=== PATIENT | male | born 1965 | race Caucasian/White ===

== ENCOUNTER 2017-11-28 19:25 | Emergency (ER) | payer OTHER ==
[~2017-11-28] VITALS: Ht 170.2 cm; Wt 80.7 kg
[2017-11-28 19:30] VITALS: BP 138/95
--- NOTE | 2017-11-28 19:34 | NUR ---
Patient ambulated to bed 3. RN evaluating patient at bedside.
--- NOTE | 2017-11-28 19:44 | NUR ---
Dr. Neely evaluating patient at bedside.
--- NOTE | 2017-11-28 19:45 | NUR ---
52/M CAME IN ED, C/O 01/05 ACHING, BURNING R HAND PAIN, NONRADIATING, X3 DAYS. PT STATED HE SLAMMED HIS HAND ON A WOODEN DOOR ON MONDAY. R HAND SWELLING NOTED, SKIN INTACT, LIMITED ROM, +CIRCULATION, +SENSATION. PT REPORTS PUTTING ICY HOT WITH LITTLE RELIEF. AAOX4, PERRL, WITH EVEN AND STEADY GAIT; LUNGS CLEAR BL, BREATHING UNLABORED; HR EVEN AND REGULAR, BL PERIPHERAL PULSES PRESENT; BS ACTIVE X4, NO TENDERNESS TO PALPATION; PT DENIES ANY FEVER, CP, SOB, OR COUGH AT THIS TIME; PATIENT POSITIONED FOR COMFORT; HOB ELEVATED; BEDRAILS UP X2; BED DOWN. DR MENDEZ AT BEDSIDE TO EVALUATE.
--- NOTE | 2017-11-28 20:11 | NUR ---
evs tech at bedside.
[2017-11-28 21:06] VITALS: BP 135/95
--- NOTE | 2017-11-28 21:06 | NUR ---
Patient discharged with v/s stable. Written and verbal after care instructions given and explained. Patient alert, oriented and verbalized understanding of instructions. Ambulatory with steady gait. All questions addressed prior to discharge. ID band removed. Patient advised to follow up with PMD. Rx of IBUPROFEN 800MG given. Patient educated on indication of medication including possible reaction and side effects. Opportunity to ask questions provided and answered.
== END 2017-11-28 21:06 | disposition home or self-care (01) ==
LOC: MED 19:25
DX: S62.316A Displaced fracture of base of fifth metacarpal bone, right hand, initial encounter for closed fracture (principal); W23.0XXA Caught, crushed, jammed, or pinched between moving objects, initial encounter; Y93.89 Activity, other specified; Y99.8 Other external cause status; Y92.89 Other specified places as the place of occurrence of the external cause
CPT/HCPCS: 73130; 99284

== ENCOUNTER 2021-08-06 07:33 | Emergency (ER) | payer OTHER ==
[~2021-08-06] VITALS: Ht 177.8 cm; Wt 85.3 kg
[2021-08-06 07:35] VITALS: BP 150/108
--- NOTE | 2021-08-06 07:39 | NUR ---
PT AMBULATED TO ER BED 4 WITH A STEADY GAIT.
--- NOTE | 2021-08-06 08:00 | NUR ---
55 Y/O M BIBS. C/C OF LEFT EYE IRRATATION WITH REDNESS. PT STATES HE WAS CLEANNING AND SOME DEBRI FELL ON HIS EYE YESTERDAY. PT ALSO STATES, THAT AFTER WASHING EYE AND USING EYE DROPS, EYE STILL BOTHERS HIM. PT DENNISE ANY SOB, FRANKLIN, V/D/N AND NOT IN ANY SIGNS OF DISTRESS. PT DENIES ANY PAIN AT THIS TIME. WILL CONTINUE TO MONITOR. MX:NONE SX: NONE
[2021-08-06] MEDS ORDERED: FLUORESCEIN OPTH STRIP 1 MG OP ONE (08:15)
--- NOTE | 2021-08-06 08:50 | NUR ---
AT BEDSIDE ASSESSING PT.
[2021-08-06] MEDS ORDERED: IBUP-2213 PO (08:59)
[2021-08-06 09:20] VITALS: BP 136/88
== END 2021-08-06 09:08 | disposition home or self-care (01) ==
LOC: MED 07:33
DX: H57.12 Ocular pain, left eye (principal)
CPT/HCPCS: 99282